=== PATIENT | female | born 1980 | race Caucasian/White ===

== ENCOUNTER → 2016-12-23 08:36 | Outpatient (CLI) | payer MEDICAID, BC ==
[2015-03-06 08:37] VITALS: BMI 38.1
[~2016-12-23 08:36] MED LIST: ALEVE220 MG PO; BYSTOLIC10 MG PO; CYCLOBENZAPRINE10 MG PO; GABAPENTIN100 MG PO; PLAVIX75 MG PO; SAVELLA50 MG PO
--- NOTE | 2016-12-27 08:24 | EMG ---
PATIENT:MEME PHILLIP DATE OF SERVICE: 12/23/16 MEDICAL RECORD: [id number] DATE OF : 82 LOCATION: [facility] ADMISSION DATE: REFERRING PHYSICIAN: PARI VELEZ MD INTERPRETING PHYSICIAN: TERRANCE MAYORGA MD DATE OF SERVICE: 12/23/2016 REFERRED BY: Dr. Velez as an outpatient. DATE OF : 1980 DATE OF EXAMINATION: 12/23/2016 ELECTROMYOGRAPHIC DATA: Electromyographic examination is limited to both upper extremities. In the right upper extremity, right median motor stimulation elicits a compound motor action potential with a distal latency of 3.5 milliseconds, peak amplitude of 11 millivolts and calculated conduction velocity of 54 meters per second. Right ulnar motor stimulation elicits a compound motor action potential with a distal latency of 3.2 milliseconds, peak amplitude of 12 millivolts, and calculated conduction velocity of 57 meters per second. Right ulnar motor stimulation across the elbow fails to elicit evidence of conduction block at this level. Antidromic right median sensory stimulation elicits a response with a distal latency of 3.1 milliseconds, amplitude of 30 microvolts and calculated conduction velocity of 57 meters per second. Antidromic right ulnar sensory stimulation elicits a response with a distal latency of 3.0 milliseconds, amplitude of 29 microvolts and calculated conduction velocity of 66 meters per second. The right median F wave has a latency of 22 milliseconds. In the left upper extremity, left median motor stimulation elicits a compound motor action potential with a distal latency of 3.5 milliseconds, peak amplitude of 9 millivolts, and calculated conduction velocity of 61 meters per second. Left ulnar motor stimulation elicits a compound motor action potential with a distal latency of 2.8 milliseconds, peak amplitude of 9 millivolts, and calculated conduction velocity of 66 meters per second. Antidromic left median sensory stimulation elicits a response with a distal latency of 3.1 milliseconds, amplitude of 30 microvolts and calculated conduction velocity of 62 meters per second. Antidromic left ulnar sensory stimulation elicits a response with a distal latency of 3.0 milliseconds, amplitude of 36 microvolts and calculated conduction velocity of 66 meters per second. The left median F wave has a latency of 22 milliseconds. Needle electrode examination is limited to both upper extremities as well. Muscles interrogated include the abductor pollicis brevis, first dorsal interosseous, abductor digiti minimi, pronator teres, biceps brachii, triceps and deltoid. There is no abnormality of insertional activity and no abnormal spontaneous activity is seen in all muscles interrogated. Motor unit potential morphology and the pattern of motor unit potential firing and recruitment is normal in all muscles sampled. INTERPRETATION: Electromyographic examination of both upper extremities is normal. There is no electrical evidence of a cervical radiculopathy or other lesion of the lower motor neuron in the upper extremities at this time. All values fall within normal limits. ELECTROMYGRAM/NERVE CONDUCTION [id number] MEME PHILLIP TRANSINT:[id number] Voice Confirmation ID: [id number] DOCUMENT ID: [id number] TERRANCE MAYORGA MD at 0824 CC: [id number] DICTATION DATE: 12/24/16811 MEDICAL SURGERY NURSE: 12/24/16 0847 DEP CLI 12/23/16 [id number] [place] [address]
== END | disposition home or self-care (01) ==
LOC: D.CN 08:36
DX: G56.20 Lesion of ulnar nerve, unspecified upper limb (principal)

== ENCOUNTER 2018-08-28 10:17 | Emergency (ER) | payer MEDICAID ==
[~2018-08-28] VITALS: Ht 157.5 cm; Wt 120.5 kg
[2018-08-28 10:25] VITALS: Ht 157.5 cm; Wt 120.5 kg
[2018-08-28] MEDS ORDERED: PEPCID AC20 MG PO (10:28)
[2018-08-28 11:17] LABS: BASOPHILS 0.3 % (0-2); EOSINOPHILS 1.4 % (0-7); HEMATOCRIT 40.7 % (36.0-48.0); IMMATURE GRANULOCYTES 0.3 % (0-5); LYMPHOCYTES 26.6 % (15-50); MCH 30.8 pg (26.0-34.0); MCHC 34.4 g/dL (31.0-37.0); MCV 89.5 fL (80.0-100.0); MEAN PLATELET VOLUME 9.3 fL (7.4-10.4); MONOCYTES 7.3 % (2-11); NEUTROPHILS 64.1 % (40-80); PLATELET COUNT 251 10x3/uL (130-400); RBC 4.55 10x6/uL (4.00-5.40); RDW 12.8 % (11.5-14.5)
[2018-08-28 11:39] LABS: ALBUMIN 4.2 g/dL (3.4-5.0); ALKALINE PHOSPHATASE 38 U/L (46-116); ALT (SGPT) 39 U/L (10-68); CALC OSMOLALITY 271 mosm/kg (275-300); CALCIUM 9.3 mg/dL (8.5-10.1); CARBON DIOXIDE 22.9 mmol/L (21.0-32.0); CHLORIDE - SERUM 102 mmol/L (98-107); CREATININE - SERUM 0.8 mg/dL (0.6-1.3); GLUCOSE 101 mg/dL (74-106); POTASSIUM - SERUM 4.2 mmol/L (3.5-5.1); PROTEIN - SERUM 8.3 g/dL (6.4-8.2); SODIUM 136 mmol/L (136-145); UREA NITROGEN 13 mg/dL (7-18); eGFR NON AFRICAN AMERICAN 85 mL/min (90-120)
[2018-08-28 12:23] LABS: HCG URINE NEGATIVE (NEGATIVE)
[2018-08-28 12:25] LABS: APPEARANCE CLEAR (CLEAR); BILIRUBIN NEGATIVE (NEGATIVE); COLOR YELLOW (YELLOW); GLUCOSE NEGATIVE (NEGATIVE); KETONE NEGATIVE (NEGATIVE); NITRITE NEGATIVE (NEGATIVE); PROTEIN NEGATIVE (NEGATIVE); UROBILINOGEN NORMAL (NORMAL)
[2018-08-28 14:42] VITALS: BP 134/88
== END 2018-08-28 14:43 | disposition home or self-care (01) ==
LOC: D.ER 10:17
PROVIDERS: Family Medicine
DX: N83.202 Unspecified ovarian cyst, left side (principal); R10.32 Left lower quadrant pain; I10 Essential (primary) hypertension; F17.200 Nicotine dependence, unspecified, uncomplicated

== ENCOUNTER 2019-11-15 06:30 | Day surgery (SDC) | payer MEDICAID ==
[2019-11-12 12:15] LABS: ANION GAP 15.3 mmol/L (8-16); CALCIUM 9.7 mg/dL (8.5-10.1); CREATININE - SERUM 0.9 mg/dL (0.6-1.3); POTASSIUM - SERUM 4.3 mmol/L (3.5-5.1)
[2019-11-12 12:22] LABS: BASOPHILS 0.2 % (0-2); EOSINOPHILS 0.9 % (0-7); HEMATOCRIT 46.3 % (36.0-48.0); HEMOGLOBIN 15.4 g/dL (12-16); IMMATURE GRANULOCYTES 0.1 % (0-5); LYMPHOCYTES 29.9 % (15-50); MCH 30.3 pg (26.0-34.0); MCHC 33.3 g/dL (31.0-37.0); MEAN PLATELET VOLUME 9.5 fL (7.4-10.4); MONOCYTES 6.4 % (2-11); NEUTROPHILS 62.5 % (40-80); RBC 5.09 10x6/uL (4.00-5.40); RDW 12.9 % (11.5-14.5); WBC 9.3 10x3/uL (4.8-10.8)
[2019-11-12 12:39] LABS: PLATELET COUNT 341 10x3/uL (130-400)
[~2019-11-15] VITALS: Ht 157.5 cm; Wt 83.9 kg
[~2019-11-15 06:30] MED LIST changes: +PEPCID AC20 MG PO
[2019-11-15] MEDS ORDERED: ATIVAN0.5 MG PO (08:00)
[2019-11-15 08:01] VITALS: BP 126/74; Ht 157.5 cm; Wt 83.9 kg
[2019-11-15 08:37] LABS: HCG URINE NEGATIVE (NEGATIVE)
[2019-11-15 13:19] VITALS: BP 144/76
--- NOTE | 2019-11-15 13:30 | NUR ---
RECIEVED BY BED FROM RECOVERY, PT IS AWAKE AND ALERT X 3. RATES PAIN AT 0/10 AT THIS TIME. IV TO LEFT HAND PATENT LR INFUSING PER ORDERS. SCD'S BILAT. ABDOMEN SOFT TO TOUCH WITH BOWEL SOUNDS ACTIVE X 4. JIMENEZ CATH TO BEDSIDE DRAIN WITH 200ML/HR TO COLLECTION CANISTER. DENIES NAUSEA AT THIS TIME. LARGE ICE WATER PER REQUEST.
--- NOTE | 2019-11-15 14:18 | NUR ---
PT SPOUSE OUT TO DESK REQUESTING TO VIEW EKG DONE PRIOR TO SURGERY, PT SENT TO MED RECORDS TO SIGN RELEASE. RECEIVED CALL FROM Nancy PATEL IN MED RECORDS EXPLAINING THAT NO RELEASE NEEDED IF PT WAS CURRENT INPATIENT AND GIVES HER CONSENT.
--- NOTE | 2019-11-15 14:30 | NUR ---
CHART TAKEN TO ROOM PER PT REQUEST AND SPOUSE ALLOWED TO REVIEW PREOP EKG.
--- NOTE | 2019-11-15 14:45 | NUR ---
PT CONTINUE TO DENY PAIN OR DISCOMFORT AND REQUEST JIMENEZ BE REMOVED. 1000ML CLEAR URINE NOTED PRIOR TO REMOVEAL, JIMENEZ CATH IS INTACT. IV SALINE LOCKED AND PT ABLE TO MOVE SELF TO SIDE OF BED WITHOUT C/O NAUSEA. UP TO BATHROOM, WARM WET WASH CLOTHS PROVIED FOR GRETCHEN CARE. GOWN CHANGED, MESH BRIEF AND GRETCHEN PAD PROVIDED TO PT AT THIS TIME ALSO. SHE IS UNABLE TO VOID BUT RESSURED THAT WAS COMMON AFTER JIMENEZ REMOVEAL. BACK TO BED PER SELF AND DENIES NEEDS AT THIS TIME. FAMILY AT BEDSIDE. SIDE RAILS UP X 2 WITH CALL LIGHT IN REACH.
--- NOTE | 2019-11-15 15:10 | NUR ---
PAIN MED GIVEN SCANNED TO EMAR. RATES PAIN AT 4/10
--- NOTE | 2019-11-15 15:30 | NUR ---
CALLED TO ROOM, PT HAS VOIDED 400ML AND DENIES PAIN OR BURNING WITH VOID. PT PROVIDED WITH CHICKEN SOUP PROVIDED WITH CRACKERS AND LARGE ICE WATER. NO OTHER NEEDS AT THIS TIME.
--- NOTE | 2019-11-15 15:45 | NUR ---
PT UP TO BATHROOM AND ABLE TO VOID 300ML. ASK IF SHE IS ABLE TO D/C HOME TODAY. WILL CALL DR BARBOZA FOR ORDERS.
--- NOTE | 2019-11-15 16:20 | NUR ---
DISCHARGE ORDERS RECEIVED.
--- NOTE | 2019-11-15 16:45 | NUR ---
SALINE LOCK REMOVED INTACT, PT RATES PAIN AT /. 3RD VOID OF 400ML NOTED. PT GETTING DRESSED AND WILL CALL WHEN READY FOR DISCHARGE.
[2019-11-15] MEDS ORDERED: MOBIC7.5 MG PO (17:03)
[2019-11-15] MEDS ORDERED: NEURONTIN 300300 MG PO (17:03)
[2019-11-15] MEDS ORDERED: PERCOCET 7.5/321 TAB PO (17:04)
--- NOTE | 2019-11-15 17:20 | NUR ---
VERBAL AND WRITTEN D/C INSTSRUCTIONS GONE OVER WITH WRITTEN SCRIPTS FOR PERCOCET 7.5, MOBIC 15MG AND NEURTIN 300MG GIVEN TO PT. SHE STATES HER UNDERSTANDING TO POST OP CARE AND S/S OF INFECTION. TO FOLLOW UP SCHECULED WITH DR BARBOZA. RATES PAIN AT THIS TIME AT 12/10. TAKEN OUT TO CAR BY WHEELCHAIR, HOME WITH FAMILY BY PRIVATE CAR.
--- NOTE | 2019-11-19 10:20 | OP ---
PATIENT NAME: MEME PHILLIP MEDICAL RECORD: [id number] :82 LOCATION:D[facility] ADMISSION DATE: SURGEON: SANG BARBOZA MD DATE OF OPERATION: 11/15/2019 PREOPERATIVE DIAGNOSIS: Dysfunctional uterine bleeding. POSTOPERATIVE DIAGNOSIS: Dysfunctional uterine bleeding. PROCEDURES: 1. Diagnostic laparoscopy. 2. Total laparoscopic hysterectomy. 3. Bilateral salpingectomy. SURGEON: Sang Barboza MD BUILDING ANALYST/SUPERVISOR: Darion. FREEZER OPERATOR: Ivan Tate. ANESTHESIOLOGIST: Edgardo Brown MD ANESTHESIA: General. FINDINGS: Uterus is boggy. Otherwise, is unremarkable. Tubes and ovaries appear unremarkable. What was visualized of the abdominal anatomy is also unremarkable. SPECIMEN REMOVED: Uterus with cervix and bilateral tubes. SPECIMEN DISPOSITION: All specimens to pathology. ESTIMATED BLOOD LOSS: Less than or equal to 100 cc. FLUIDS: 1500 cc lactated Ringer's. URINE OUTPUT: 80 cc of clear urine. COMPLICATIONS: None. DRAINS: Maynard to gravity discontinued upon arrival to the [facility]. COMPLICATIONS: None. INDICATIONS: The patient is a 39-year-old female with a history of heavy irregular periods. The patient states that the cycles are having a negative impact on quality of life and desires definitive treatment after failed medical management. DESCRIPTION OF PROCEDURE: After informed consent was assured, the patient was taken to the operating room where anesthetic is obtained. The patient was prepped and draped in the usual sterile fashion. The patient now has a uterine manipulator placed and attention was directed to the abdomen. An incision was made at the umbilicus to accommodate a 5-mm trocar, which was inserted without difficulty and pneumoperitoneum developed. Accessory ports are now placed in OPERATIVE REPORT [id number] MEME PHILLIP the right and left lower quadrant. The right lower quadrant port is a 12-mm port and the left lower quadrant port is 5-mm port. Now from the left, Thunderbeat coagulation cutter was inserted and the left tube was freed from its attachments to the adnexa. The dissection was carried out over the uteroovarian and round ligaments. The anterior leaf of the broad ligament was opened and the bladder flap developed to the midline. The posterior tissues were dissected free of the vascular bundle and the vascular bundle was not compressed, coagulated, and . Attention was directed to the right side where the right tube was removed in similar fashion. Uterine ovarian ligaments compressed, coagulated, and . Again, the dissection was carried over the round ligament and anterior leaf of the broad ligament was opened and the bladder flap now fully developed. Posterior leaf was opened and the vessels of the right side skeletonized. The vessels were now compressed, coagulated, and . Attention was directed back to the left of the dissection of the uterus from the vagina begins. The dissection was carried out from the 12-6 o'clock position going counterclockwise. The dissection concludes from 12-6 clockwise from the right. The uterus was pulled in the vagina maintaining pneumoperitoneum and the pelvis was irrigated. Using an EndoStitch, the vaginal cuff was now closed with interrupted laparoscopic stitching using extracorporeal knot tying. After this has been performed, pelvis again was irrigated, irrigant removed. Inspection reveals adequate hemostasis. Pneumoperitoneum was now released and the accessory trocars were removed. The primary trocars removed after release of the pneumoperitoneum and all sites closed with subcuticular stitch. Dermabond was applied. Sponge, lap, needle counts were correct times 2. TRANSINT:[id number] Voice Confirmation ID: [id number] DOCUMENT ID: [id number] SANG BARBOZA MD at 1020 CC: [id number] DICTATION DATE: 11/15/19 1221 ARCHITECTURAL PRACTICE MANAGER: 11/15/19 2349 [facility] 11/15/19 [facility] [address] [place] [address]
== END 2019-11-15 17:20 | disposition home or self-care (01) ==
LOC: D.OPS 06:30 → D.PAN 08:15 → D.OPS 08:15 → D.WS 13:01 → D.OPS 17:20
PROVIDERS: ATTEND Obstetrics & Gynecology
DX: N93.8 Other specified abnormal uterine and vaginal bleeding (principal); D25.9 Leiomyoma of uterus, unspecified; N92.0 Excessive and frequent menstruation with regular cycle; I20.9 Angina pectoris, unspecified; I10 Essential (primary) hypertension; R00.2 Palpitations; R94.31 Abnormal electrocardiogram [ECG] [EKG]; R06.00 Dyspnea, unspecified

== ENCOUNTER 2019-12-31 09:26 | Emergency (ER) | payer MEDICAID ==
[~2019-12-31] VITALS: Ht 157.5 cm; Wt 80.5 kg
[~2019-12-31 09:26] MED LIST changes: +ATIVAN0.5 MG PO; +MOBIC7.5 MG PO; +NEURONTIN 300300 MG PO; +PERCOCET 7.5/321 TAB PO
[2019-12-31 09:30] VITALS: Ht 157.5 cm; Wt 80.5 kg
[2019-12-31 09:59] LABS: BASOPHILS 0.1 % (0-2); EOSINOPHILS 0.7 % (0-7); HEMATOCRIT 42.1 % (36.0-48.0); HEMOGLOBIN 14.2 g/dL (12-16); IMMATURE GRANULOCYTES 0.3 % (0-5); LYMPHOCYTES 16.2 % (15-50); MCH 30.1 pg (26.0-34.0); MCHC 33.7 g/dL (31.0-37.0); MCV 89.4 fL (80.0-100.0); MONOCYTES 8.5 % (2-11); NEUTROPHILS 74.2 % (40-80); PLATELET COUNT 408 10x3/uL (130-400); RBC 4.71 10x6/uL (4.00-5.40); RDW 12.8 % (11.5-14.5); WBC 16.7 10x3/uL (4.8-10.8)
[2019-12-31 10:08] LABS: HCG SERUM NEGATIVE (NEGATIVE)
[2019-12-31 10:18] LABS: ANION GAP 14.7 mmol/L (8-16); CALCIUM 9.3 mg/dL (8.5-10.1); CARBON DIOXIDE 28.7 mmol/L (21.0-32.0); POTASSIUM - SERUM 3.4 mmol/L (3.5-5.1)
[2019-12-31 10:19] LABS: COLOR YELLOW (YELLOW)
[2019-12-31 10:20] LABS: APPEARANCE CLEAR (CLEAR); BILIRUBIN NEGATIVE (NEGATIVE); GLUCOSE NEGATIVE (NEGATIVE); KETONE NEGATIVE (NEGATIVE); NITRITE NEGATIVE (NEGATIVE); PROTEIN NEGATIVE (NEGATIVE); UROBILINOGEN NORMAL (NORMAL)
[2019-12-31 10:23] LABS: EPITHELIAL CELLS 0-5 /hpf (0-5); RED CELLS - URINE OCC /hpf (0-5); WHITE CELLS - URINE 0-5 /hpf (NEGATIVE)
[2019-12-31 10:24] LABS: ALBUMIN 4.2 g/dL (3.4-5.0); BILIRUBIN - TOTAL 0.53 mg/dL (0.2-1.3); PROTEIN - SERUM 7.8 g/dL (6.4-8.2)
[2019-12-31 10:24] LABS: BACTERIA FEW /hpf (NEGATIVE)
[2019-12-31 11:49] VITALS: BP 115/60
== END 2019-12-31 11:50 | disposition home or self-care (01) ==
LOC: D.ER 09:26
PROVIDERS: Family Medicine
DX: N93.9 Abnormal uterine and vaginal bleeding, unspecified (principal); Z90.710 Acquired absence of both cervix and uterus; I10 Essential (primary) hypertension